=== PATIENT | female | born 1995 | race Caucasian/White ===

== ENCOUNTER 2018-04-09 20:14 | Emergency (ER) | payer BC, OTHER ==
[2018-04-09 21:22] LABS: HEMATOCRIT 41.3 % (36.0-47.0); HEMOGLOBIN 13.7 g/dl (12.0-15.5); MEAN CORPUSCULAR HGB CONC 33.2 g/dl (32.0-36.5); MEAN CORPUSCULAR VOLUME 87.5 fl (80.0-96.0); PLATELET COUNT, AUTOMATED 323 10^3/uL (150-450); RED BLOOD COUNT 4.72 10^6/uL (4.00-5.40); RED CELL DISTRIBUTION WIDTH 12.3 % (11.5-14.5); WHITE BLOOD COUNT 13.6 10^3/uL (4.0-10.0)
[2018-04-09 21:24] LABS: ADD MANUAL DIFFER YES; DIFF SLIDE NUMBER 290; POSITIVE DIFF POS FLAG
[2018-04-09 21:32] LABS: D-DIMER QUANT 315.32 ng/ml (<500)
[2018-04-09 21:36] LABS: ANION GAP 6 MEQ/L (8-16); BLOOD UREA NITROGEN 6 MG/DL (7-18); CARBON DIOXIDE LEVEL 29 MEQ/L (21-32); CHLORIDE LEVEL 105 MEQ/L (98-107); CREATININE FOR GFR 0.71 MG/DL (0.55-1.30); GLOMERULAR FILTRATION RATE > 60.0 (>60); GLUCOSE, FASTING 100 MG/DL (70-100); POTASSIUM SERUM 3.9 MEQ/L (3.5-5.1); SODIUM LEVEL 140 MEQ/L (136-145)
[2018-04-09 21:38] LABS: ATYPICAL LYMPH 7 % (0-5); EOSINOPHILS 2 % (0-5); LYMPHOCYTES 30 % (16-52); MONOCYTES 6 % (0-8); NEUTROPHILS 55 % (35-75); PLATELET ESTIMATE NORMAL (NORMAL)
== END 2018-04-09 22:56 | disposition home or self-care (01) ==
LOC: M ED 20:14
DX: J06.9 Acute upper respiratory infection, unspecified (principal); I45.19 Other right bundle-branch block; K90.0 Celiac disease; Z88.2 Allergy status to sulfonamides
CPT/HCPCS: 71046

== ENCOUNTER 2019-05-18 15:07 | Emergency (ER) | payer BC, OTHER ==
[~2019-05-18] VITALS: Ht 162.6 cm; Wt 91.4 kg
[~2019-05-18 15:07] MED LIST: AMOX250C PO
[2019-05-18 19:25] LABS: CHLAMYDIA DNA AMPLIFICATION NEGATIVE (NEGATIVE); GC DNA AMPLIFICATION NEGATIVE (NEGATIVE)
[2019-05-18 19:30] VITALS: BP 132/74
== END 2019-05-18 20:08 | disposition home or self-care (01) ==
LOC: M ED 15:07
DX: N64.4 Mastodynia (principal); R30.0 Dysuria; Z87.42 Personal history of other diseases of the female genital tract; Z87.448 Personal history of other diseases of urinary system; G43.909 Migraine, unspecified, not intractable, without status migrainosus; Z91.018 Allergy to other foods; Z88.2 Allergy status to sulfonamides